=== PATIENT | male | born 1945 | race Caucasian/White ===

== ENCOUNTER 2020-01-10 17:59 | Emergency (ER) | payer OTHER, MEDICARE, SELFPAY ==
[2020-01-10 18:34] VITALS: BP 181/79; PULSE 69; RESP 15; TEMP 36.8; O2SAT 95; BMI 34.0
[2020-01-10] MEDS: lidocaine 1% INJ 20 mL SUBCUT (23:21)
--- NOTE | 2020-01-10 23:55 | XR_ITS ---
WS: [id number] XR hand LT min 3V* [id number] REASON FOR EXAM: injury FINDINGS: Degenerated changes of the distal phalangeal joints. There is degenerate changes of the first metacarpal carpal articulation. There is hypertrophic changes noted along the second phalanx with marked soft tissue swelling of the second phalanx. XR/XR hand LT min 3V* [id number] IMPRESSION: Soft tissue swelling second phalanx. Osteoarthritic changes of the phalanges and the first metacarpal carpal carpal articulation.
--- NOTE | 2020-01-10 23:55 | ED_ITS ---
HPI - Extremity Problem General: Chief complaint: Extremity Injury, Upper Stated complaint: thumb laceration Time Seen by Provider: 01/10/20 23:15 Source: patient Mode of arrival: ambulatory Limitations: no limitations History of Present Illness: HPI Narrative: Patient comes in today with complaints of injury to the left thumb. Patient was using a table saw and caught the left thumb across the table saw. Patient has a gaping laceration. Patient cannot recall his last tetanus shot. Review of Systems General: Reports: 10 or more systems reviewed and unremarkable except in HPI and below Skin/Breast: Reports: other (laceration left thumb) PFS ED PFSH: Social History Smoking and tobacco status: never smoked Physical Exam Const: COMMON NORMALS: no apparent distress and oriented x3 GENERAL APPEARANCE: cooperative HENMT: COMMON NORMALS: normocephalic, external ears normal, EAC's normal, TM's normal bilaterally and external nose normal HEAD & SCALP: normal to inspection and normocephalic FACE & SINUS: normal facial exam NOSE: external nose normal GENERAL EAR: hearing not grossly impaired EXTERNAL EAR: Yes external ears normal EXTERNAL AUDITORY CANAL: EAC's normal TYMPANIC MEMBRANE: TM's normal bilaterally MOUTH: oral and palatal mucosa normal THROAT: posterior oropharynx normal Eye: COMMON NORMALS: PERRL and EOMs intact bilaterally PUPIL: Yes PERRL Neck/C-Spine: COMMON NORMALS: full ROM and no lymphadenopathy Lymph: LYMPHATIC: no lymphedema noted Chest: COMMONS NORMALS: inspection of chest normal and palpation of chest normal Resp: COMMON NORMALS: normal respiratory effort and clear to auscultation bilaterally AUSCULTATION: clear to auscultation bilaterally Cardio: COMMON NORMALS: regular rate and regular rhythm RATE: regular rate RHYTHM: regular rhythm GI: COMMON NORMALS: normal to inspection, nondistended, normoactive bowel sounds and non-tender : COMMON NORMALS: Yes no CVA tenderness BLADDER/KIDNEY EXAM: Yes no CVA tenderness Back/Pelvis: COMMON NORMALS: no CVA tenderness and thoracic and lumbar spine normal to inspection Extremity: NARRATIVE EXTREMITY EXAM: 4 cm laceration to the left thumb. No foreign body is noted. No ligament injury is noted. GENERAL: Yes edema Neuro: COMMON NORMALS: oriented x3, moves all extremities and no focal motor deficits Psych: COMMON NORMALS: mental status grossly normal and cooperative Skin: COMMON NORMALS: no rashes or lesions noted GENERAL SKIN EXAM: no rashes or lesions noted Procedures Laceration Laceration 1: Site: hand (left thumb) Side (If applicable): left Size (cm): 4 Description: flap Depth: involves muscle layer Local Anesthetic: lidocaine 1% Amount of anesthesia used (mL): 8 Pre-repair: wound explored and irrigated extensively Skin layer closed with: nylon Size (cm): 4-0 Number of sutures: 15 Technique: simple, interrupted Course Vital Signs: Vital signs: Vital Signs Temperature 98.3 F 01/10/20 18:34 Pulse Rate 69 01/10/20 18:34 Respiratory Rate 15 01/10/20 18:34 Blood Pressure 181/79 01/10/20 18:34 Pulse Oximetry 95 01/10/20 18:34 MDM - Extremity (Nontraumatic) MDM Narrative: Medical decision making narrative: Patient comes in with injury to the left thumb. On exam we note an extensive laceration to the volar area aspect of the thumb. No obvious damage is noted to the nail. Prompt capillary refill is noted in the distal part of the thumb. Skin is warm and dry. Normal tendon function is noted. Differential diagnosis includes foreign body, fracture, tendon injury, laceration. X-ray noted damage to the tuft of the thumb. Exam noted no foreign body or tendon injury. Wound was repaired with 15 stitches. Patient tolerated well. Reviewed post care exam and need for follow- up. Patient reports understanding agreed to plan. Discharge Plan Discharge Patient Disposition: Home, Self-Care Clinical Impression: Laceration of thumb Qualifiers: Encounter type: initial encounter Damage to nail status: without damage Foreign body presence: without foreign body Laterality: left Qualified Code(s): S61.012A - Laceration without foreign body of left thumb without damage to nail, initial encounter Condition: Stable Prescriptions: New hydrocodone-acetaminophen 5-325 mg tablet 1 tab PO Q6H PRN (Reason: pain (scale score 7-10)) Qty: 7 RF: 0 cephalexin 500 mg tablet 500 mg PO TID 10 Days Qty: 30 RF: 0 Referrals: Jose De Jesus Reilly MD [Family Provider] - Discharge Diet: Usual diet Discharge Activity: Increase activity as tolerated Patient Instructions: Finger Laceration (ED) Activity Restrictions/Additional Instructions: keep wound clean and dry change dressing if soiled or wet wash wound gently with mild soap then redress Follow-up with primary care in one week for recheck Sutures out in 10-14 days Coding Level of Care Code ED Fiberglass Machine Operator for Everg Fwd Exam Comprehensive
[2020-01-11] MEDS: HYDROcodone-acetaminophen 7.5-325 mg Tablet 1 TAB PO (00:01)
[2020-01-11] MEDS: tetanus-dipt-pertussis 0.5 mL SDV IM (00:01)
[2020-01-11] MEDS: cephALEXin 500 mg Capsule PO (00:02)
== END 2020-01-11 00:46 | disposition home or self-care (01) ==
PROVIDERS: Emergency Provider Nurse Practitioner Family; Family Provider Family Medicine
DX: S61.012A Laceration without foreign body of left thumb without damage to nail, initial encounter (principal); W31.2XXA Contact with powered woodworking and forming machines, initial encounter
CPT/HCPCS: 12042; 73130; 90471; 90715; 99281; 99283; J2001

== ENCOUNTER → 2020-03-16 11:19 | Outpatient (BNVA) | payer MEDICARE, OTHER, SELFPAY | PROVIDERS: Family Provider Family Medicine; Visit Provider Urology | DX: C61 Malignant neoplasm of prostate (principal); N52.9 Male erectile dysfunction, unspecified | CPT/HCPCS: 81001; 84153 ==

== ENCOUNTER 2020-10-09 12:51 | Outpatient (CLI) | payer OTHER, SELFPAY ==
--- NOTE | 2020-10-09 13:07 | MR_ITS ---
WS: [id number] MRI HEAD WITH CONTRAST TECHNIQUE: Sagittal T1, T2 axial, T2 axial FLAIR, axial susceptibility weighted imaging, axial diffus ion weighted images, and coronal T2 images were obtained. Pre and post-T1 axial and post T1 coronal i mages. ADC and FSPGR images. CLINICAL INFORMATION: COARSE TREMORS COMPARISON: None. FINDINGS: No evidence of restricted diffusion to suggest acute ischemia. Ventricular system and basal cisterns are patent. Mild small vessel changes. Moderate parenchymal volume loss. Small vessel changes in the casey. 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 Right ICA and basilar arteries are patent. Moderate symmetric atrophy involving the temporal lobes and hippocampal formations. Normal optic marty sm and pituitary infundibulum. No hemosiderin on the susceptibility weighted images. No abnormal gado linium enhancement. Normal optic chiasm and pituitary infundibulum. Normal cavernous sinuses and Meck el's cave. Normal dural venous sinuses. MR/MR head wo/w con [id number] IMPRESSION: 1. No evidence of restricted diffusion to suggest acute ischemia. 2. Mild small vessel changes. Moderate parenchymal volume loss. Small vessel c hanges in the casey. 3. Chronic lacunar infarct right cerebellum. 4. 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 This is unchanged since the ultraso und in 2019. Findings can be further evaluated with CTA head and neck. 5. Moderate symmetric atrophy involving the temporal lobes and hippocampal for mations. 6. No abnormal gadolinium enhancement.
== END 2020-10-09 12:52 | disposition home or self-care (01) ==
LOC: RADSHAW 12:53
PROVIDERS: PCP Emergency Medicine Emergency Medical Services; Visit Provider Emergency Medicine Emergency Medical Services
DX: G25.2 Other specified forms of tremor (principal); G31.9 Degenerative disease of nervous system, unspecified; I63.81 Other cerebral infarction due to occlusion or stenosis of small artery; I65.22 Occlusion and stenosis of left carotid artery
CPT/HCPCS: 70553

== ENCOUNTER 2020-11-16 10:41 | Outpatient (CLI) | payer MEDICARE, OTHER, SELFPAY ==
[2020-11-16 11:23] LABS: Basophils # 0.1 10^3/uL (0.0-0.1); Basophils % 0.8 %; Eosinophils # 0.5 10^3/uL (0.0-0.8); Eosinophils % 6.7 %; Hematocrit 47.5 % (42.0-52.0); Hemoglobin 15.2 g/dL (11.7-16.6); Lymphocytes # 1.2 10^3/uL (0.8-4.8); Lymphocytes % 16.6 %; Mean Corpuscular Hemoglobin 31.5 pg (28.0-34.0); Mean Corpuscular Volume 98.5 fL (80-94); Mean Platelet Volume 9.7 fL (7.4-10.4); Monocytes # 0.7 10^3/uL (0.2-0.9); Monocytes % 9.8 %; Neutrophils # 4.62 10^3/uL (1.8-7.7); Neutrophils % 64.7 %; Nucleated Red Blood Cells % 0 %; Platelet Count 221 10^3/cmm (130-400); Red Blood Count 4.82 10^6/uL (4.1-5.3); Red Cell Distribution Width 14.4 % (12.1-15.1); White Blood Count 7.2 10^3/uL (4.0-10.0)
[2020-11-16 11:52] LABS: Alanine Aminotransferase 16 U/L (0-41); Albumin Level 4.5 g/dL (3.5-5.2); Alkaline Phosphatase 77 IU/L (40-130); Anion Gap 12.7 (5-19); Aspartate Amino Transferase 21 U/L (0-40); Blood Urea Nitrogen 21 mg/dL (8-23); Calcium 8.9 mg/dL (8.5-10.5); Carbon Dioxide 29 mmol/L (22-29); Chloride 101 mmol/L (98-107); Globulin 2.3 g/dL (1.3-4.6); Glucose 86 mg/dL (65-115); Osmolality Calculated 288 mOsm/kg (285-295); Potassium 4.7 mmol/L (3.5-5.1); Sodium 138 mmol/L (136-145); Total Bilirubin 0.6 mg/dL (0.15-1.2); Total Protein 6.8 g/dL (6.6-8.7)
[2020-11-16 12:19] LABS: Erythrocyte Sedimentation Rate 3 mm/hr (0-10)
[2020-11-16 12:50] LABS: HIV 1 & 2 Antibody Non-Reactive (Non-Reactiv); HIV 1 & 2 Antigen Non-Reactive (Non-Reactiv)
[2020-11-16 13:27] LABS: Hepatitis A Antibody IgM Non-Reactive (Nonreactive); Hepatitis B Core AB, Total Non-Reactive (Nonreactive); Hepatitis B Surface AB 5.6 (0-8.5); Hepatitis B Surface Antigen Non-Reactive (Nonreactive); Hepatitis C Virus Antibody Non-Reactive (Nonreactive)
[2020-11-18 14:53] LABS: Quantiferon Mitogen >10.00 IU/mL; Quantiferon Nil 0.02 IU/mL; Quantiferon TB Gold NEGATIVE (NEGATIVE)
== END 2020-11-16 10:42 | disposition home or self-care (01) ==
PROVIDERS: PCP Emergency Medicine Emergency Medical Services; Visit Provider Student in an Organized Health Care Education/Training Program
DX: R50.9 Fever, unspecified (principal)
CPT/HCPCS: 36415; 80053; 85025; 85651; 86480; 86705; 86706; 86709; 86803; 87340; 87806

== ENCOUNTER → 2021-03-15 11:10 | Outpatient (BNVA) | payer OTHER, SELFPAY | PROVIDERS: PCP Emergency Medicine Emergency Medical Services; Visit Provider Urology | DX: N39.9 Disorder of urinary system, unspecified (principal); C61 Malignant neoplasm of prostate; R39.9 Unspecified symptoms and signs involving the genitourinary system; N52.35 Erectile dysfunction following radiation therapy | CPT/HCPCS: 81003; G0103 ==

== ENCOUNTER 2021-11-07 12:33 | Outpatient (CLI) | payer OTHER, SELFPAY ==
--- NOTE | 2021-11-07 13:00 | MR_ITS ---
WS: [id number] MRI RIGHT SHOULDER NONCONTRAST TECHNIQUE: Sagittal T2, coronal T1, T2 and proton density imaging. Axial gradient PDE imaging. CLINICAL INFORMATION: M67.911 - Unspecified disorder of synovium and tendon, ri... COMPARISON: None. FINDINGS: Moderate degenerative arthritis at the AC joint. Moderate narrowing of the subacromial space. Slight subacromial spurring. Minimal downsloping acromion. Glenohumeral joint effusion. Small amount of suba cromial/subdeltoid fluid. Edema at the AC joint. High-grade full-thickness tear of the supraspinatus with tendon retraction to the level of the glenoh umeral joint. Additional high-grade complete tear of the infraspinatus with tendon retraction to the glenohumeral joint. Normal teres minor. Chronic thinning with intrasubstance tear of the subscapularis tendon. Biceps ten don is atrophic and dislocated anteriorly and medially from the bicipital groove. Tiny intra-articula r biceps tendon. Paralabral cyst along the posterior inferior labrum measuring 9 mm. Chronic appearing tear along the posterior glenoid labrum. Degenerative fraying of the glenoid labrum. Intra-articular biceps tendon i s not well visualized likely chronically torn. Degenerative cystic change at the greater tuberosity. . MR/MR shoulder RT wo con* [id number] IMPRESSION: 1. Moderate degenerative arthritis AC joint with edema and fluid. Subacromial spurring 2. High-grade full-thickness tears involving supraspinatus and infraspinatus w ith tendon retraction to the level of glenohumeral joint. 3. Intrasubstance tear with chronic thinning of the subscapularis tendon. Peg s minor appears intact. 4. Biceps tendon is atrophic and dislocated from the bicipital groove. Tiny in tra-articular biceps tendon. 5. Chronic appearing tear of the posterior glenoid labrum with a perilabral cy st measuring 9 mm. 6. Moderate joint effusion
== END 2021-11-07 12:34 | disposition home or self-care (01) ==
LOC: RADSHAW 12:36
PROVIDERS: PCP Emergency Medicine Emergency Medical Services; Visit Provider Orthopaedic Surgery
DX: M67.911 Unspecified disorder of synovium and tendon, right shoulder (principal); M19.011 Primary osteoarthritis, right shoulder; M75.101 Unspecified rotator cuff tear or rupture of right shoulder, not specified as traumatic; M25.411 Effusion, right shoulder; S43.431A Superior glenoid labrum lesion of right shoulder, initial encounter; X58.XXXA Exposure to other specified factors, initial encounter
CPT/HCPCS: 73221

== ENCOUNTER 2022-01-29 20:00 | Outpatient (CLI) | payer OTHER, SELFPAY | END 2022-01-29 20:01 | disposition home or self-care (01) | LOC: SLEEP 01-30 06:33 | PROVIDERS: PCP Emergency Medicine Emergency Medical Services; Visit Provider Emergency Medicine Emergency Medical Services | DX: G47.33 Obstructive sleep apnea (adult) (pediatric) (principal) | CPT/HCPCS: 95811 ==

== ENCOUNTER 2022-03-14 10:14 | Outpatient (CLI) | payer MEDICARE, SELFPAY | END 2022-03-14 10:15 | disposition home or self-care (01) | PROVIDERS: PCP Emergency Medicine Emergency Medical Services; Visit Provider Urology | DX: C61 Malignant neoplasm of prostate (principal) | CPT/HCPCS: 36415; 81003; 84153 ==

== ENCOUNTER → 2022-05-22 14:39 | Outpatient (BNVA) | payer OTHER, SELFPAY | PROVIDERS: PCP Emergency Medicine Emergency Medical Services; Referring Provider Emergency Medicine Emergency Medical Services; Visit Provider Surgery | DX: Z86.010 Personal history of colon polyps (principal) | CPT/HCPCS: 99203 ==

== ENCOUNTER 2022-07-01 14:06 | Emergency (ER) | payer OTHER, MEDICARE, SELFPAY ==
[2022-07-01 14:14] VITALS: PULSE 79; RESP 20; TEMP 37.3; O2SAT 97; BMI 36.8
--- NOTE | 2022-07-01 14:44 | XRR_ITS ---
PROCEDURE INFORMATION: Exam: XR Chest Exam date and time: 07/01/2022 3:10 PM Age: 77 years old Clinical indication: Other: Covid symptoms; Patient HX: HX of prostate cancer TECHNIQUE: Imaging protocol: Radiologic exam of the chest. Views: 1 view. COMPARISON: CR Chest 2 views* [id number] 01/04/2019 10:24 AM FINDINGS: Lungs: Unremarkable. No consolidation. Pleural spaces: Unremarkable. No pleural effusion. No pneumothorax. Heart/Mediastinum: Unremarkable. No cardiomegaly. Bones/joints: Unremarkable. XR/XR chest 1V portable [id number] IMPRESSION: No acute findings.
--- NOTE | 2022-07-01 15:31 | W.ED.COVID ---
HPI - COVID General: Chief Complaint: COVID symptoms Stated Complaint: cold chills Time Seen by Provider: 07/01/22 14:43 Source: patient Mode of arrival: ambulatory Triage information: No fever, cough or shortness of breath. No known COVID + exposure last 14 days History of Present Illness: 77-year-old male presents emergency room with complaints of fever cough chills generally not feeling well headache myalgia denies any nausea vomiting or diarrhea began earlier today he has no known COVID exposure otherwise he generally feels well. He has a history of hypertension. Symptoms began earlier today has not noticed anything that exacerbates or relieves his symptoms. MD complaint: has COVID symptoms Prior covid testing: no COVID 19 common symptoms: positive fever(s), chills, cough, non-productive cough, dyspnea, fatigue, body aches, headache(s), throat pain, nasal congestion and nausea; negative productive cough or diarrhea COVID 19 other sytmptoms: negative chest pain or requiring oxygen Onset (ago): hour(s) Severity: moderate Pertinent comorbid conditions: hypertension Treatment prior to arrival: none COVID Results: No Data to Display Review of Systems Const: Reports: fever(s), chills, body aches and fatigue; Denies: malaise ENMT: Reports: throat pain and nasal congestion Card: Denies: chest pain, edema, dyspnea on exertion or orthopnea Resp: Reports: dyspnea and non-productive cough; Denies: productive cough GI: Reports: nausea; Denies: abdominal pain or diarrhea : Denies: flank pain, dysuria, urinary frequency or urinary urgency Skin/Breast: Denies: rash or pruritus Neuro: Reports: headache(s) PFSH ED PFSH: Medical History Carotid artery stenosis History of radiation therapy Hyperlipidemia Hypertension Hypogonadism Osteoarthritis Prostate cancer Surgical History H/O angioplasty H/O prostate biopsy S/P tonsillectomy Family History Family/Other CAD (coronary artery disease) Hypertension Hyperlipidemia Social History Smoking and tobacco status: never smoked Alcohol intake: current Alcohol intake frequency: holidays/special occasions only Marital status: History of recent travel: No Physical Exam Const: GENERAL APPEARANCE: cooperative and comfortable ORIENTATION/CONSCIOUSNESS: Yes awake, Yes oriented to person, Yes oriented to place and Yes oriented to time HENMT: COMMON NORMALS: normocephalic and atraumatic HEAD & SCALP: normocephalic and atraumatic Resp: COMMON NORMALS: normal respiratory effort, No retractions, No use of accessory muscles and clear to auscultation bilaterally AUSCULTATION: clear to auscultation bilaterally Cardio: COMMON NORMALS: regular rate, regular rhythm and No murmurs present (Cardio) RATE: regular rate RHYTHM: regular rhythm GI: COMMON NORMALS: Soft to palpation and No hepatosplenomegaly present AUSCULTATION: Yes normoactive bowel sounds PALPATION: Yes Soft to palpation, No Tenderness to palpation present (GI), No Guarding due to palpation present (GI) and Yes No hepatosplenomegaly present Extremity: COMMON NORMALS: normal to inspection, capillary refill normal, no clubbing, cyanosis or edema, no calf tenderness and no pedal edema Neuro: SENSORIUM/ORIENTATION: Yes oriented to person, Yes oriented to place and Yes oriented to time Skin: COMMON NORMALS: no rashes or lesions noted GENERAL SKIN EXAM: no rashes or lesions noted Course Vital Signs: Vital signs: Vital Signs Temperature 99.1 F 07/01/22 14:14 Pulse Rate 79 07/01/22 14:14 Respiratory Rate 20 H 07/01/22 14:14 Pulse Oximetry 97 07/01/22 14:14 Oxygen Delivery Ok thod 07/01/22 14:14 MDM - COVID Medical Decision Making Exam vital signs normal discharge home COVID swab pending maintain self quarantine until results are available. Would be a candidate for Paxlovid if positive Medical Records I reviewed the patient's medical records. Lab Data I reviewed the patient's lab results. No Data to Display Discharge Plan Discharge Patient Disposition: Home Clinical Impression: Suspected COVID-19 virus infection Condition: Stable Prescriptions: No Action atorvastatin 10 mg tablet 10 mg PO DAILY metoprolol tartrate 50 mg tablet 50 mg PO DAILY magnesium oxide 420 mg tablet 420 mg PO DAILY allopurinol 300 mg tablet 300 mg PO DAILY citalopram 20 mg tablet 20 mg PO DAILY celecoxib [Celebrex] 200 mg capsule 200 mg PO DAILY amlodipine 10 mg tablet 10 mg PO DAILY aspirin 325 mg tablet 325 mg PO DAILY vitamin B complex [B Complex-Vitamin B12] Tablet 1 tab PO DAILY cholecalciferol (vitamin D3) 1,250 mcg (50,000 unit) capsule PO glucosamine sulfate [Glucosamine] 500 mg tablet 500 mg PO BID methotrexate 2.5 mg/mL solution PO DAILY Discharge Orders: Discharge ED (Routine); Ordered 07/01/22 Ordered By: Josias Terrazas Referrals: Amador Valladares DO [Primary Care Provider] - Discharge Diet: Usual diet Discharge Activity: Resume usual activity Patient Instructions: Opioid Safety Activity Restrictions/Additional Instructions: You were swabbed for COVID in the emergency room based on your presenting symptoms we do suspect you may have COVID. Recommend that you maintain self quarantine till results are available we will contact you as soon as they have returned from the lab. Coding Level of Care Code ED Tap Out Operator for Wilda Starr
[2022-07-01 17:50] LABS: Adenovirus Not Detected (NOT DETECT); Chlamydia Pneumoniae Not Detected (NOT DETECT); Coronavirus 229E,HKU1,NL63,OC4 Not Detected (NOT DETECT); Human Metapneumovirus Not Detected (NOT DETECT); Human Rhinovirus/Enterovirus Not Detected (NOT DETECT); Influenza A Not Detected (NOT DETECT); Influenza A H1 Not Detected (NOT DETECT); Influenza A H1-2009 Not Detected (NOT DETECT); Influenza A H3 Not Detected (NOT DETECT); Influenza B Not Detected (NOT DETECT); Mycoplasma Pneumoniae Not Detected (NOT DETECT); Parainfluenza Virus Type 1 Not Detected (NOT DETECT); Parainfluenza Virus Type 2 Not Detected (NOT DETECT); Parainfluenza Virus Type 3 Not Detected (NOT DETECT); Parainfluenza Virus Type 4 Not Detected (NOT DETECT); Respiratory Syncytial Virus A Not Detected (NOT DETECT); Respiratory Syncytial Virus B Not Detected (NOT DETECT); SARS-COV-2 Not Detected (NOT DETECT)
== END 2022-07-01 16:05 | disposition home or self-care (01) ==
PROVIDERS: Emergency Provider Family Medicine; PCP Emergency Medicine Emergency Medical Services
DX: Z20.822 Contact with and (suspected) exposure to COVID-19 (principal); Z79.82 Long term (current) use of aspirin; E78.5 Hyperlipidemia, unspecified; I10 Essential (primary) hypertension; Z85.46 Personal history of malignant neoplasm of prostate
CPT/HCPCS: 71045; 87635; 99283

== ENCOUNTER 2022-08-08 05:56 | Day surgery (SDC) | payer OTHER, SELFPAY ==
[2022-08-06 12:50] VITALS: BMI 35.2
[2022-08-08 06:23] VITALS: BP 160/74; PULSE 46; RESP 18; TEMP 36.4; O2SAT 98
[2022-08-08] MEDS: sodium chloride 0.9% 1,000 ML 30 ML IV (06:33)
--- NOTE | 2022-08-08 06:37 | W.PM.OPSFHP ---
Same Day Surgery H&P Indication for Procedure/HPI DATE OF PROCEDURE: August 08, 2022 CHIEF COMPLAINT/INDICATIONFOR SURGICAL PROCEDURE: History of colon polyps PREOP DIAGNOSIS: History of colon polyps PLANNED PROCEDURE: Operation Date: 08/08/22 07:00 Proposed Procedures p Colonoscopy 30073,Z86.010(Not Applicable) - Carlos Wahl MD This is a pleasant 77 years old gentleman comes today for surveillance colonoscopy with history of colon polyps. ROS All systems have been reviewed negative except as for the above or per problem list. Medications/Allergies* Home Medications Medication Instructions Recorded Confirmed Type allopurinol 300 mg tablet 300 mg PO DAILY 03/16/20 08/06/22 History amlodipine 10 mg tablet 10 mg PO DAILY 03/16/20 08/06/22 History atorvastatin 10 mg tablet 10 mg PO DAILY 03/16/20 08/06/22 History celecoxib 200 mg capsule (Celebrex) 200 mg PO DAILY 03/16/20 08/06/22 History cholecalciferol (vitamin D3) 1,250 1,250 mcg PO BID 03/16/20 08/06/22 History mcg (50,000 unit) capsule citalopram 20 mg tablet 20 mg PO DAILY 03/16/20 08/06/22 History glucosamine sulfate 500 mg tablet 500 mg PO BID 03/16/20 08/06/22 History (Glucosamine) magnesium oxide 420 mg tablet 420 mg PO DAILY 03/16/20 08/06/22 History metoprolol tartrate 50 mg tablet 50 mg PO DAILY 03/16/20 08/06/22 History vitamin B complex (B 1 tab PO DAILY 03/16/20 08/06/22 History Complex-Vitamin B12 tablet) methotrexate 2.5 mg/mL oral 2.5 mg PO DAILY 03/15/21 08/06/22 History solution Allergies/Adverse Reactions Allergy/AdvReac Type Severity Reaction Status Date / Time No Known Allergies Allergy Verified 08/08/22 06:38 Current Medications: Generic Name Dose Route Start Last Admin Trade Name Freq PRN Reason Stop Dose Admin Sodium Chloride 1,000 mls @ 30 mls/hr 08/08/22 06:00 08/08/22 06:33 Sodium Chloride 0.9% IV 08/09/22 05:59 30 mls/hr .Q24H NEYDA Administration Pertinent History/Comorbid Conditions* Medical History (Updated 07/01/22 @ 15:30 by Josias Terrazas DO) Carotid artery stenosis History of radiation therapy Hyperlipidemia Hypertension Hypogonadism Osteoarthritis Prostate cancer Surgical History (Updated 03/15/21 @ 11:39 by Avery Cortez MD) H/O angioplasty H/O prostate biopsy S/P tonsillectomy Family History (Updated 03/16/20 @ 11:17 by Rama Bernard RN) CAD (coronary artery disease) Family/Other Hyperlipidemia Family/Other Hypertension Family/Other Social History Smoking and tobacco status: never smoked Alcohol intake: current Alcohol intake frequency: holidays/special occasions only Marital status: History of recent travel: No Pertinent Exam Findings alert, oriented x 3, regular rate & rhythm and procedure specific exam findings (Abdominal exam nontender nondistended soft) Recommendations Surgery/Procedure today (Colonoscopy with possible biopsy) Coding Level of Care Code Acute Ore Bridge Operator for Wilda Starr
--- NOTE | 2022-08-08 06:50 | ANES.PREANE2 ---
Pre-Anesthetic Assessment Height/Weight: Height 1.7 m Weight 102.058 kg Temp Pulse Resp BP Pulse Ox O2 Del Method 97.5 F L 46 L 18 160/74 98 08/08/22 06:23 08/08/22 06:23 08/08/22 06:23 08/08/22 06:23 08/08/22 06:23 08/08/22 06:23 Preop Diagnosis: History of colon polyps Operation Date: 08/08/22 07:00 Proposed Procedures p Colonoscopy 61394,Z86.010(Not Applicable) - Carlos Wahl MD Familial anesthetic complications: none Was Beta Delilah taken within 24 hours: N/A Was Clonidine taken within 24 hours: N/A Last intake: Intake Last Liquid Date 08/07/22 Last Liquid Time 22:00 Last Solid Date 08/06/22 Last Solid Time 23:59 Social Alcohol and No tobacco Exam alert and oriented x 3 Airway Submandibular: within normal limits Cervical ROM: within normal limits Mallampati: Class II Dentition: full History/ROS No significant history except as noted Pulmonary None reported CV/HEM Hypertension None reported Hepatic None reported GI None reported Metabolic Hyperlipidemia [facility] [place] None reported Neuropsych None reported Anesthetic Plan ASA status: 3 Anesthesia: Anesthesia Evaluation and MAC Risk of > 500 ml blood loss (7ml/kg in children): No Medications/Allergies Home Medications Medication Instructions Recorded Confirmed Last Taken Type allopurinol 300 mg tablet 300 mg PO DAILY 03/16/20 08/06/22 08/07/22 History amlodipine 10 mg tablet 10 mg PO DAILY 03/16/20 08/06/22 08/08/22 05:00 History atorvastatin 10 mg tablet 10 mg PO DAILY 03/16/20 08/06/22 08/07/22 History celecoxib 200 mg capsule (Celebrex) 200 mg PO DAILY 03/16/20 08/06/22 08/07/22 History cholecalciferol (vitamin D3) 1,250 1,250 mcg PO BID 03/16/20 08/06/22 08/07/22 History mcg (50,000 unit) capsule citalopram 20 mg tablet 20 mg PO DAILY 03/16/20 08/06/22 08/07/22 History glucosamine sulfate 500 mg tablet 500 mg PO BID 03/16/20 08/06/22 08/07/22 History (Glucosamine) magnesium oxide 420 mg tablet 420 mg PO DAILY 03/16/20 08/06/22 08/07/22 History metoprolol tartrate 50 mg tablet 50 mg PO DAILY 03/16/20 08/06/22 08/08/22 05:00 History vitamin B complex (B 1 tab PO DAILY 03/16/20 08/06/22 08/07/22 History Complex-Vitamin B12 tablet) methotrexate 2.5 mg/mL oral 2.5 mg PO DAILY 03/15/21 08/06/22 08/07/22 History solution Allergies Allergy/AdvReac Type Severity Reaction Status Date / Time No Known Allergies Allergy Verified 08/08/22 06:38 Current Medications Generic Name Dose Route Start Last Admin Trade Name Freq PRN Reason Stop Dose Admin Sodium Chloride 1,000 mls @ 30 mls/hr 08/08/22 06:00 08/08/22 06:33 Sodium Chloride 0.9% IV 08/09/22 05:59 30 mls/hr .Q24H NEYDA Administration PFSH Anesthesia Medical History Carotid artery stenosis History of radiation therapy Hyperlipidemia Hypertension Hypogonadism Osteoarthritis Prostate cancer Surgical History H/O angioplasty H/O prostate biopsy S/P tonsillectomy Family History Family/Other CAD (coronary artery disease) Hypertension Hyperlipidemia Social History Smoking and tobacco status: never smoked Alcohol intake: current Alcohol intake frequency: holidays/special occasions only Marital status: History of recent travel: No Data Anesthesia Cardiac Studies: No Data to Display
[2022-08-08 07:19] VITALS: BP 111/59; PULSE 42; RESP 18; TEMP 36.1; O2SAT 95
--- NOTE | 2022-08-08 07:22 | ANE.PACU2 ---
Inpatient post-anesthesia follow up: Airway intact: Yes Vital signs: Temperature 97.0 F Pulse Rate 42 Respiratory Rate 18 Blood Pressure 111/59 Pulse Oximetry 95 Oxygen Delivery Me thod Room Air Oxygen Flow Rate Fraction of Inspir ed Oxygen Hydration adequate: Yes Nausea and vomiting: No Pain level: 1 Mental status: Baseline
[2022-08-08 07:42] VITALS: BP 134/62; PULSE 47; RESP 18; O2SAT 100
== END 2022-08-08 07:46 | disposition home or self-care (01) ==
PROVIDERS: PCP Emergency Medicine Emergency Medical Services; Visit Provider Surgery
PROC: 0DJD8ZZ Inspection of Lower Intestinal Tract, Via Natural or Artificial Opening Endoscopic (ICD-10-PCS; CPT 45378; principal; 2022-08-08 07:00)
DX: Z12.11 Encounter for screening for malignant neoplasm of colon (principal); Z86.010 Personal history of colon polyps; E78.5 Hyperlipidemia, unspecified; M19.90 Unspecified osteoarthritis, unspecified site; Z85.46 Personal history of malignant neoplasm of prostate; Z92.3 Personal history of irradiation; K57.30 Diverticulosis of large intestine without perforation or abscess without bleeding
CPT/HCPCS: 45378; J2704; J7030

== ENCOUNTER → 2022-08-22 16:06 | Outpatient (BNVA) | payer OTHER, MEDICARE, SELFPAY | PROVIDERS: PCP Emergency Medicine Emergency Medical Services; Visit Provider Surgery | DX: Z09 Encounter for follow-up examination after completed treatment for conditions other than malignant neoplasm (principal); K57.31 Diverticulosis of large intestine without perforation or abscess with bleeding | CPT/HCPCS: 99212 ==

== ENCOUNTER 2023-03-13 09:12 | Outpatient (CLI) | payer MEDICARE, SELFPAY ==
[2023-03-13 10:07] LABS: Prostate Specific AG Urology 0.82 ng/mL (0-4)
== END 2023-03-13 09:13 | disposition home or self-care (01) ==
LOC: LAB 09:17
PROVIDERS: PCP Emergency Medicine Emergency Medical Services; Visit Provider Urology
DX: C61 Malignant neoplasm of prostate (principal); R39.9 Unspecified symptoms and signs involving the genitourinary system; N52.35 Erectile dysfunction following radiation therapy
CPT/HCPCS: 36415; 81003; 84153; 99213

== ENCOUNTER 2023-07-23 10:10 | Emergency (ER) | payer OTHER, SELFPAY ==
[2023-07-23 10:38] VITALS: BP 178/82; PULSE 68; RESP 16; TEMP 36.6; O2SAT 97; BMI 33.8
--- NOTE | 2023-07-23 10:56 | CT_ITS ---
WS: [id number] CT ABDOMEN AND PELVIS NONCONTRAST HISTORY: left flank pain with urinary frequency TECHNIQUE: Imaging performed through the abdomen and pelvis. Coronal and sagittal reformats are submi tted. All CT scans at [facility] use at least one of these dose optimization techniques: auto mated exposure control; mA and/or kV adjustment per patient size (includes targeted exams where dose is matched to clinical indication); or iterative reconstruction. DLP: 892.08 mGy.cm COMPARISON: None available. Lower thorax: Lung bases are clear. Visualized heart is normal. No hiatal hernia. Liver: Normal size liver. No mass or bile duct dilatation. Gallbladder: Cholelithiasis without acute cholecystitis. Pancreas: Normal size and attenuation. Normal pancreatic duct. No pancreatitis or mass. Spleen: Normal. Adrenal glands: Normal. No mass. Right kidney: Normal size kidney with no mass or hydronephrosis. Left kidney: Mildly enlarged edematous LEFT kidney with perinephric stranding. Mild dilatation of the renal pelvis and calyces. LEFT ureter is dilated with periureteral stranding. 6 mm calcification at the UV junction. Aorta: Moderate atherosclerosis abdominal aorta. No aneurysm. Atherosclerosis continues into the comm on iliac arteries. No free fluid, intraperitoneal air or significant lymphadenopathy. GI tract: No obstruction. Moderate diffuse constipation and tortuosity of the colon. Moderate diverti cular burden in the distal colon without acute diverticulitis. Normal appendix. Abdominal wall: Small umbilical hernia contains fat only. Pelvis: Prior prostatectomy. No free fluid or adenopathy. Osseous structures: LEFT hip arthroplasty. Advanced degenerative changes throughout the lumbar spine. IMPRESSION: 1. Mild LEFT hydroureteronephrosis secondary to a 6 mm UP junction calcification. 2. No RIGHT renal obstruction. 3. Cholelithiasis. 4. Moderate atherosclerosis aorta. 5. Extensive chronic constipation with moderate distal colonic diverticular burden.
--- NOTE | 2023-07-23 11:15 | ED_ITS ---
HPI - Abdominal Pain General: Chief Complaint: Abdominal Pain Stated Complaint: [facility] Time Seen by Provider: 07/23/23 10:45 History of Present Illness: 78-year-old male presents to the emergency department with a chief complaint of having ongoing left-sided flank pain rating to the left groin has been progressively getting worse over the last couple of days. Patient also endorses urinary frequency with this does not report any recent fevers or chills reports a prior history of kidney infections but no kidney stones patient did not endorse any prior history of back issues patient does report moderate nausea with this pain that comes and goes in waves. Associated Symptoms: Reports nausea; Denies chills and fever(s) Review of Systems General: Reports: 10 or more systems reviewed and unremarkable except in HPI and below Const: Denies: fever(s), chills, fatigue or malaise Eyes: Denies: change in vision or blurry vision Card: Denies: chest pain or palpitations Resp: Denies: dyspnea or productive cough GI: Reports: abdominal pain and nausea : Reports: flank pain and urinary frequency Musc: Denies: extremity pain or extremity swelling Skin/Breast: Denies: rash or pruritus Neuro: Denies: headache(s) Psych: Denies: anxiety or depression Henrry/Lymph: Denies: easy bleeding All/Imm: Denies: urticaria, throat swelling or facial swelling PFSH ED 2 PFSH: Medical History Carotid artery stenosis History of radiation therapy Hyperlipidemia Hypertension Hypogonadism Osteoarthritis Prostate cancer Surgical History H/O angioplasty H/O prostate biopsy S/P tonsillectomy Family History Family/Other CAD (coronary artery disease) Hypertension Hyperlipidemia Social History Smoking and tobacco status: never smoked Alcohol intake: current Alcohol intake frequency: holidays/special occasions only Substance/Drug Use: never Marital status: Current occupational status: retired Physical Exam Const: COMMON NORMALS: patient oriented x3 and healthy appearing; apparent distress HENMT: COMMON NORMALS: normocephalic and atraumatic HEAD & SCALP: normocephalic and atraumatic Eye: COMMON NORMALS: Equal, round and reactive pupils present and EOMs intact bilaterally PUPIL: Yes Equal, round and reactive pupils present Neck/C-Spine: COMMON NORMALS: full ROM, supple and no JVD Lymph: LYMPHATIC: no lymphadenopathy noted Chest: COMMONS NORMALS: normal inspection of the chest and normal palpation of entire chest wall Resp: COMMON NORMALS: normal respiratory effort, No retractions and clear to auscultation bilaterally EFFORT & INSPECTION: Yes able to speak in complete s entences and Yes symmetric chest movement AUSCULTATION: clear to auscultation bilaterally Cardio: COMMON NORMALS: no JVD, regular rate and regular rhythm RATE: regular rate RHYTHM: regular rhythm GI: COMMON NORMALS: Normal to inspection, nondistended, normoactive bowel sounds present, Soft to palpation and non-tender INSPECTION: Yes normal to inspection PALPATION: Yes Soft to palpation : OTHER: Moderate left-sided CVA tenderness to management rating to left lower abdomen otherwise soft nontender Extremity: COMMON NORMALS: normal to inspection and full ROM Neuro: COMMON NORMALS: patient oriented x3, CN's II-XII intact bilaterally, moves all extremities and no focal motor deficits Psych: COMMON NORMALS: mental status grossly normal, Normal thought process present, cooperative and normal affect THOUGHT PROCESS: Normal thought process present Skin: COMMON NORMALS: no rashes or lesions noted GENERAL SKIN EXAM: no rashes or lesions noted Course Vital Signs: Vital signs: Vital Signs Temperature 97.9 F 07/23/23 10:38 Pulse Rate 64 07/23/23 12:02 Respiratory Rate 16 07/23/23 10:38 Blood Pressure 153/80 07/23/23 13:57 Pulse Oximetry 96 07/23/23 13:57 Oxygen Delivery Me thod Room Air 07/23/23 12:02 MDM - Abdominal Pain Medical Decision Making Due to patient's symptoms condition IV was established IV fluids provided for hydration lab work and imaging obtained with underlying concerns of acute stone disease versus infection is prominent, will continue to follow. Lab Data 07/23/23 11:22 07/23/23 11:22 Labs/Radiology: Laboratory Results WBC 8.82 10^3/uL (3.29-11.43) 07/23/23 11:22 RBC 5.11 10^6/uL (3.85-5.65) 07/23/23 11:22 Hgb 15.60 g/dL (11.27-16.99) 07/23/23 11:22 Hct 46.6 % (37-53) 07/23/23 11:22 MCV 91.2 fl (82-101) 07/23/23 11:22 MCH 30.5 pg (27-33) 07/23/23 11:22 MCHC 33.5 g/dL (30-55) 07/23/23 11:22 RDW 12.9 % (12.1-15.1) 07/23/23 11:22 Plt Count 220 10^3/cmm (157-399) 07/23/23 11:22 MPV 9.9 fL (7.4-10.4) 07/23/23 11:22 Neut % (Auto) 69.6 % 07/23/23 11:22 Lymph % (Auto) 15.5 % 07/23/23 11:22 [place] % (Auto) 8.2 % 07/23/23 11:22 Eos % (Auto) 5.4 % 07/23/23 11:22 Baso % (Auto) 0.7 % 07/23/23 11:22 Neut # (Auto) 6.14 10^3/uL (1.8-7.7) 07/23/23 11:22 Lymph # (Auto) 1.4 10^3/uL (0.8-4.8) 07/23/23 11:22 [place] # (Auto) 0.7 10^3/uL (0.2-0.9) 07/23/23 11:22 Eos # (Auto) 0.5 10^3/uL (0.0-0.8) 07/23/23 11:22 Baso # (Auto) 0.1 10^3/uL (0.0-0.1) 07/23/23 11:22 Nucleated RBC % (auto) 0 % 07/23/23 11:22 Nucleated RBCs # 0.0 /100WBC 07/23/23 11:22 Sodium 139 mmol/L (136-145) 07/23/23 11:22 Potassium 3.6 mmol/L (3.5-5.1) 07/23/23 11:22 Chloride 103 mmol/L (98-107) 07/23/23 11:22 Carbon Dioxide 26 mmol/L (22-29) 07/23/23 11:22 Anion Gap 13.6 (5-19) 07/23/23 11:22 BUN 22 mg/dL (8-23) 07/23/23 11:22 Creatinine 1.4 mg/dL (0.7-1.2) H 07/23/23 11:22 GFR Calculation Not Reportable 07/23/23 11:22 Glucose 122 mg/dL (65-115) H 07/23/23 11:22 Calculated Osmolality 293 mOsm/kg (285-295) 07/23/23 11:22 Calcium 9.1 mg/dL (8.5-10.5) 07/23/23 11:22 Total Bilirubin 0.5 mg/dL (0.15-1.2) 07/23/23 11:22 AST 11 U/L (0-40) 07/23/23 11:22 ALT 14 U/L (0-41) 07/23/23 11:22 Alkaline Phosphatase 80 U/L (40-130) 07/23/23 11:22 Total Protein 6.9 g/dL (6.6-8.7) 07/23/23 11:22 Albumin 4.2 g/dL (3.5-5.2) 07/23/23 11:22 Globulin 2.7 g/dL (1.3-4.6) 07/23/23 11:22 Urine Color Dark yellow (Yellow) 07/23/23 13:17 Urine Appearance Sl hazy (CLEAR) A 07/23/23 13:17 Urine pH 5 (5-7) 07/23/23 13:17 Ur Specific [place] 1.020 (1.005-1.030) 07/23/23 13:17 Urine Protein 1+ (Negative) H 07/23/23 13:17 Urine Glucose (UA) Norm (Normal) 07/23/23 13:17 Urine Ketones 1+ (Negative) H 07/23/23 13:17 Urine Blood 2+ (Negative) H 07/23/23 13:17 Urine Nitrate Negative (Negative) 07/23/23 13:17 Urine Bilirubin 1+ (Negative) H 07/23/23 13:17 Urine Urobilinogen 4 mg/dL (Negative) H 07/23/23 13:17 Ur Leukocyte Esterase Trace (Negative) H 07/23/23 13:17 Urine RBC 0-4 /hpf (0-2) H 07/23/23 13:17 Urine WBC 0-4 /hpf (0-5) H 07/23/23 13:17 Ur Squamous Epith Cells 0-4 /hpf (0-5) H 07/23/23 13:17 Calcium Oxalate Crystal 0-4 /hpf H 07/23/23 13:17 Amorphous Sediment 3+ /hpf 07/23/23 13:17 Urine Bacteria None /hpf (NONE) 07/23/23 13:17 Urine Mucus 4+ /hpf 07/23/23 13:17 Discharge Plan Discharge Patient Disposition: Home Clinical Impression: Kidney stone on left side Condition: Stable Prescriptions: New hydrocodone-acetaminophen 5-325 mg tablet 1 tab PO Q8H PRN (Reason: pain) Qty: 20 0RF ondansetron 4 mg tablet,disintegrating 4 mg PO Q8H PRN (Reason: nausea and vomiting) Qty: 20 0RF Flomax 0.4 mg capsule 0.4 mg PO DAILY Qty: 7 0RF No Action atorvastatin 10 mg tablet 10 mg PO DAILY metoprolol tartrate 50 mg tablet 50 mg PO DAILY allopurinol 300 mg tablet 300 mg PO DAILY citalopram 20 mg tablet 20 mg PO DAILY celecoxib [Celebrex] 200 mg capsule 200 mg PO DAILY amlodipine 10 mg tablet 10 mg PO DAILY vitamin B complex [B Complex-Vitamin B12] Tablet 1 tab PO DAILY cholecalciferol (vitamin D3) 1,250 mcg (50,000 unit) capsule 1,250 mcg PO DAILY glucosamine sulfate [Glucosamine] 500 mg tablet 500 mg PO BID Vitamin C 500 mg Tablet 500 mg PO DAILY Discharge Orders: Discharge ED (Routine); Ordered 07/23/23 Ordered By: Herrera Higuera Referrals: Amador Valladares DO [Primary Care Provider] - 1-3 days (For further evaluation and referral to urology through the [facility]) Discharge Diet: Advance as tolerated Discharge Activity: Increase activity as tolerated Patient Instructions: Kidney Stones, Kidney Stones (ED), Renal Colic (ED), Opioid Safety, Pain Management Activity Restrictions/Additional Instructions: Please further follow-up with your primary care doctor in 2 to 3 days for further reevaluation and referral [facility] drink lots of fluids over the next several days to reduce likelihood of secondary infection i.e. urinary tract infections please take medications as prescribed, and please return in the interim if any of your symptoms persist or worse Coding Level of Care Code ED Industry Consultant for Wilda Starr
[2023-07-23 11:38] LABS: Basophils # 0.1 10^3/uL (0.0-0.1); Basophils % 0.7 %; Eosinophils # 0.5 10^3/uL (0.0-0.8); Eosinophils % 5.4 %; Hematocrit 46.6 % (37-53); Lymphocytes # 1.4 10^3/uL (0.8-4.8); Lymphocytes % 15.5 %; Mean Corpuscular HGB Conc 33.5 g/dL (30-55); Mean Corpuscular Hemoglobin 30.5 pg (27-33); Mean Corpuscular Volume 91.2 fl (82-101); Mean Platelet Volume 9.9 fL (7.4-10.4); Monocytes # 0.7 10^3/uL (0.2-0.9); Monocytes % 8.2 %; Neutrophils # 6.14 10^3/uL (1.8-7.7); Neutrophils % 69.6 %; Nucleated Red Blood Cells % 0 %; Platelet Count 220 10^3/cmm (157-399); Red Blood Count 5.11 10^6/uL (3.85-5.65); Red Cell Distribution Width 12.9 % (12.1-15.1); White Blood Count 8.82 10^3/uL (3.29-11.43)
[2023-07-23] MEDS: sodium chloride 0.9% 1,000 ML 999 ML IV (11:57)
[2023-07-23] MEDS: ondansetron 2 mg/ML SDV 2 mL 4 MG IVP (11:57)
[2023-07-23] MEDS: ketorolac 30 mg/mL INJ 10 MG IVP (11:58)
[2023-07-23] MEDS: tamsulosin 0.4 mg Capsule PO (12:00)
[2023-07-23 12:02] VITALS: BP 154/80; PULSE 64; O2SAT 96
[2023-07-23 12:04] LABS: Alanine Aminotransferase 14 U/L (0-41); Albumin Level 4.2 g/dL (3.5-5.2); Alkaline Phosphatase 80 U/L (40-130); Anion Gap 13.6 (5-19); Aspartate Amino Transferase 11 U/L (0-40); Blood Urea Nitrogen 22 mg/dL (8-23); Calcium 9.1 mg/dL (8.5-10.5); Carbon Dioxide 26 mmol/L (22-29); Chloride 103 mmol/L (98-107); Globulin 2.7 g/dL (1.3-4.6); Glucose 122 mg/dL (65-115); Osmolality Calculated 293 mOsm/kg (285-295); Potassium 3.6 mmol/L (3.5-5.1); Sodium 139 mmol/L (136-145); Total Bilirubin 0.5 mg/dL (0.15-1.2); Total Protein 6.9 g/dL (6.6-8.7)
[2023-07-23 13:57] VITALS: BP 153/80; O2SAT 96
[2023-07-23 14:46] LABS: Add Urine Microscopic? YES; Bilirubin Urine 1+ (Negative); Blood Urine 2+ (Negative); Glucose Urine UA Norm (Normal); Ketones Urine 1+ (Negative); Leukocyte Esterase Urine Trace (Negative); Nitrate Urine Negative (Negative); Protein Urine 1+ (Negative); Urine Appearance SL Hazy (CLEAR); Urine Color Dark Yellow (Yellow); Urobilinogen Urine 4 mg/dL (Negative); pH Urine 5 (5-7)
[2023-07-23 14:47] LABS: Add Urine Culture? No; Amorphous Sediment Urine 3+ /hpf; Calcium Oxalate Crystals Urine 0-4 /hpf; Mucus Urine 4+ /hpf; RBC Urine 0-4 /hpf (0-2); Squamous Epithelial Cell Urine 0-4 /hpf (0-5); WBC Urine 0-4 /hpf (0-5)
== END 2023-07-23 15:30 | disposition home or self-care (01) ==
PROVIDERS: Emergency Provider Emergency Medicine; PCP Emergency Medicine Emergency Medical Services
DX: N20.0 Calculus of kidney (principal); E78.5 Hyperlipidemia, unspecified; I10 Essential (primary) hypertension; Z85.46 Personal history of malignant neoplasm of prostate; Z92.3 Personal history of irradiation
CPT/HCPCS: 74176; 80053; 81001; 85025; 96361; 96374; 96375; 99285; J1885; J2405; J7030

== ENCOUNTER 2024-04-28 09:30 | Outpatient (CLI) | payer OTHER, MEDICARE, SELFPAY | END 2024-04-28 09:31 | disposition home or self-care (01) | PROVIDERS: PCP Emergency Medicine Emergency Medical Services; Visit Provider Urology | DX: Z12.5 Encounter for screening for malignant neoplasm of prostate (principal); Z85.46 Personal history of malignant neoplasm of prostate | CPT/HCPCS: 84153 ==

== ENCOUNTER 2025-10-19 16:36 | Emergency (ER) | payer OTHER, SELFPAY ==
[2025-10-19 16:49] VITALS: BP 177/74; PULSE 60; RESP 16; TEMP 36.7; O2SAT 96
[2025-10-19] MEDS: tetanus-dipt-pertussis 0.5 mL SDV IM (17:43)
--- NOTE | 2025-10-19 17:49 | XRR_ITS ---
PROCEDURE INFORMATION: Exam: XR Right Finger(s) Exam date and time: 10/19/2025 6:06 PM Age: 80 years old Clinical indication: Injury or trauma; Other: Caught in wood planar; Laceration; Right; Ring finger TECHNIQUE: Imaging protocol: Radiologic exam of the right fingers. Views: Minimum 2 views. COMPARISON: No relevant prior studies available. FINDINGS: Bones/joints: Comminuted open fracture involving distal aspect distal phalanx right ring finger. Bone mineralization appears normal. Some osteoarthrosis of visualized right hand with some [id number] narrowing of right index finger and right long finger metacarpophalangeal joints. No severe joint space narrowing or erosion. Osteoarthrosis radial aspect right wrist. No dislocation or gross destructive bony process demonstrated. Soft tissues: Findings consistent with adjacent soft tissue trauma distal aspect right ring finger corresponding with patient history. Adjacent dressing. No obvious radiopaque foreign body noted. XR/XR finger RT min 2V [id number] IMPRESSION: 1. Findings consistent with comminuted open fracture distal phalanx right ring finger. 2. No dislocation or gross destructive bony process demonstrated.
[2025-10-19 18:10] VITALS: PULSE 59; O2SAT 93
--- NOTE | 2025-10-19 18:18 | W.ED.WOUNDLC ---
HPI - Wound/Laceration General: Chief Complaint: Wound/Laceration Stated Complaint: Rt ring lac Time Seen by Provider: 10/19/25 16:40 History of Present Illness: 80-year-old gentleman with history of hypertension. He presents to the ED due to a laceration. Patient was plaining a board when he got his finger caught at the end of the board. He has pain and laceration in his right ring finger. Patient then corrects himself and states he was plaining the board twice. This occurred just prior to arrival. No LOC. Tetanus is not up-to-date. Associated symptoms: Reports nausea; Denies chills or fever(s) Related Data Home Medications ?Medication ?Instructions ?Recorded ?Confirmed allopurinol 300 mg tablet 300 mg PO DAILY 03/16/20 07/23/23 amlodipine 10 mg tablet 10 mg PO DAILY 03/16/20 07/23/23 atorvastatin 10 mg tablet 10 mg PO DAILY 03/16/20 07/23/23 celecoxib 200 mg capsule (Celebrex) 200 mg PO DAILY 03/16/20 07/23/23 cholecalciferol (vitamin D3) 1,250 1,250 mcg PO DAILY 03/16/20 07/23/23 mcg (50,000 unit) capsule citalopram 20 mg tablet 20 mg PO DAILY 03/16/20 07/23/23 glucosamine sulfate 500 mg tablet 500 mg PO BID 03/16/20 07/23/23 (Glucosamine) metoprolol tartrate 50 mg tablet 50 mg PO DAILY 03/16/20 07/23/23 vitamin B complex (B 1 tab PO DAILY 03/16/20 07/23/23 Complex-Vitamin B12 tablet) ascorbic acid (vitamin C) 500 mg 500 mg PO DAILY 07/23/23 07/23/23 tablet (Vitamin C) Previous Rx's ?Medication ?Instructions ?Recorded hydrocodone 5 mg-acetaminophen 325 1 tab PO Q8H PRN pain #20 tabs 07/23/23 mg tablet ondansetron 4 mg disintegrating 4 mg PO Q8H PRN nausea and 07/23/23 tablet vomiting #20 tabs tamsulosin 0.4 mg capsule (Flomax) 0.4 mg PO DAILY #7 caps 07/23/23 cephalexin 500 mg capsule 500 mg PO TID 10 days #30 caps 10/19/25 methocarbamol 500 mg tablet 500 mg PO Q8H PRN muscle spasm #30 10/19/25 tabs Allergies Allergy/AdvReac Type Severity Reaction Status Date / Time No Known Allergies Allergy Verified 07/23/23 10:44 Review of Systems General: Reports: 10 or more systems reviewed and unremarkable except in HPI and below Const: Denies: fever(s), chills, fatigue or malaise Eyes: Denies: change in vision or blurry vision Card: Denies: chest pain or palpitations Resp: Denies: dyspnea or productive cough GI: Reports: abdominal pain and nausea : Reports: flank pain and urinary frequency Musc: Denies: extremity pain or extremity swelling Skin/Breast: Denies: rash or pruritus Neuro: Denies: headache(s), numbness in extremities, weakness in extremities or sensory changes Psych: Denies: anxiety or depression Henrry/Lymph: Denies: easy bleeding All/Imm: Denies: urticaria, throat swelling or facial swelling PFSH ED PFSH: Medical History (Updated 10/20/25 @ 01:26 by MARYANN Menjivar) Osteoarthritis Hyperlipidemia Hypertension Hypogonadism Carotid artery stenosis History of radiation therapy Prostate cancer Surgical History H/O angioplasty S/P tonsillectomy H/O prostate biopsy Family History Family/Other CAD (coronary artery disease) Hypertension Hyperlipidemia Social History Smoking and tobacco/nicotine status: never used tobacco/nicotine Alcohol intake: current Alcohol intake frequency: holidays/special occasions only Substance/Drug Use: never Marital status: Current occupational status: retired Physical Exam Const: COMMON NORMALS: no acute distress, average body habitus, patient oriented x3, no limitations, healthy appearing, alert and well nourished HENMT: COMMON NORMALS: normocephalic and atraumatic HEAD & SCALP: normocephalic and atraumatic Lymph: LYMPHATIC: no lymphadenopathy noted Chest: COMMONS NORMALS: normal inspection of the chest and normal palpation of entire chest wall Resp: COMMON NORMALS: normal respiratory effort, No retractions and No use of accessory muscles Cardio: COMMON NORMALS: regular rate and regular rhythm RATE: regular rate RHYTHM: regular rhythm GI: COMMON NORMALS: Normal to inspection, nondistended, normoactive bowel sounds present, Soft to palpation, non-tender and No hepatosplenomegaly present PALPATION: Yes Soft to palpation and Yes No hepatosplenomegaly present : COMMON NORMALS: Yes no CVA tenderness BLADDER/KIDNEY EXAM: Yes no CVA tenderness Back/Pelvis: COMMON NORMALS: no CVA tenderness Extremity: NARRATIVE EXTREMITY EXAM: Patient has circumferential lacerations x 2 distally and just proximal to that. Nailbed was included. Neuro: COMMON NORMALS: patient oriented x3 SENSORIUM/ORIENTATION: Yes alert Psych: COMMON NORMALS: mental status grossly normal, Normal thought process present and cooperative THOUGHT PROCESS: Normal thought process present Procedures Laceration Laceration 1: Site: hand (right 4th/index finger tip) Side (If applicable): right Size (cm): 4 Description: flap, irregular, clean and involves lid margin Depth: simple, single layer and involves muscle layer Local Anesthetic: lidocaine 1% Amount of anesthesia used (mL): 6 Pre-repair: wound explored, irrigated extensively (1000 ml), extensive debridement and wound margins revised Skin layer closed with: nylon Size (cm): 3-0 Number of sutures: 6 Technique: simple, interrupted Course Vital Signs: Vital signs: Vital Signs Temperature 98.1 F 10/19/25 16:49 Pulse Rate 59 L 10/19/25 18:10 Respiratory Rate 16 10/19/25 16:49 Blood Pressure 177/74 10/19/25 16:49 Pulse Oximetry 93 10/19/25 18:10 Oxygen Delivery Me thod Room Air 10/19/25 18:10 MDM - Wound/Laceration Medical Decision Making This was difficult on suturing given the 2 laceration lines, and nearly a degloving, and open fracture to distal phalanx. This was treated as an open fracture and patient was given Ancef. The wound was vigorously washed with 1000 mL of saline. The wound was vigorously cleaned with peroxide, and with Betadine prep. Suturing was through both layers of laceration x 6 circumferentially. Discussed with patient he is high risk for necrosis to the end of the finger. He will need to be on antibiotics the entire time, and this will need to be followed by orthopedics. Patient states understanding, and was brace, and placed in wet-to-dry bandages. Wound care was given to him verbally and written down. Medical Records I reviewed the patient's medical records. Lab Data Radiology Impressions Finger X-Ray 10/19/25 17:49 IMPRESSION: 1. Findings consistent with comminuted open fracture distal phalanx right ring finger. 2. No dislocation or gross destructive bony process demonstrated. All radiology interpretation(s) finalized by discharge ED provider radiology interpretation(s): Distal phalanx fracture Discharge Plan Discharge Patient Disposition: Home Clinical Impression: Fracture of distal phalanx of finger of right hand, Laceration of right index finger Condition: Stable Prescriptions: New cephalexin 500 mg capsule 500 mg PO TID 10 Days Qty: 30 0RF methocarbamol 500 mg tablet 500 mg PO Q8H PRN (Reason: muscle spasm) Qty: 30 0RF No Action atorvastatin 10 mg tablet 10 mg PO DAILY metoprolol tartrate 50 mg tablet 50 mg PO DAILY allopurinol 300 mg tablet 300 mg PO DAILY citalopram 20 mg tablet 20 mg PO DAILY celecoxib [Celebrex] 200 mg capsule 200 mg PO DAILY amlodipine 10 mg tablet 10 mg PO DAILY vitamin B complex [B Complex-Vitamin B12] Tablet 1 tab PO DAILY cholecalciferol (vitamin D3) 1,250 mcg (50,000 unit) capsule 1,250 mcg PO DAILY glucosamine sulfate [Glucosamine] 500 mg tablet 500 mg PO BID Vitamin C 500 mg Tablet 500 mg PO DAILY hydrocodone-acetaminophen 5-325 mg tablet 1 tab PO Q8H PRN (Reason: pain) Qty: 20 0RF ondansetron 4 mg tablet,disintegrating 4 mg PO Q8H PRN (Reason: nausea and vomiting) Qty: 20 0RF Flomax 0.4 mg capsule 0.4 mg PO DAILY Qty: 7 0RF Discharge Orders: Discharge ED (Routine); Ordered 10/19/25 Ordered By: Marisol Manley Referrals: Jarrett Poon MD [Physician, Orthopedics] - 7-10 days Amador Valladares DO [Primary Care Provider, Emergency Medicine] Discharge Diet: Usual diet Discharge Activity: Limit activity as instructed Patient Instructions: Fractures - Phalanx (Finger), Laceration (ED), Patient Portal & Trish Instructions Activity Restrictions/Additional Instructions: - Call Dr. Poon's office for follow-up. Referral has been made. - As we discussed, this will need to be followed closely. - As we discussed, take your antibiotics 3 times a day, set an alarm. It is crucial to take your antibiotics as directed. Take a probiotic or eat active culture yogurt. Your antibiotics are due to be started first thing in the morning. - Wound care: Wet to dry. Xeroform, Vaseline gauze, followed by wet gauze, followed by dry gauze, and splint. - Return to ED if you have redness, drainage, fever greater than 100.4 - As we discussed, you are at high risk for losing the tip of your finger. Follow-up with your doctor closely. Return to ED if you need to. Thank you for choosing [facility] for your healthcare needs today. You have been screened and evaluated and felt safe for discharge. Health conditions do change or evolve sometimes and as such it is important that you follow up with your Primary Doctor to be re checked, 3-5 days is a general good time frame for follow up. You are always welcome to return to the ED for re assessment if your symptoms are worsening or you have new concerns Print Language: Trinidadian Coding Level of Care Code ED Swabber for Wilda Starr
[2025-10-19] MEDS: ceFAZolin 1,000 mg SDV 1000 MG IVP (18:55)
[2025-10-19] MEDS: HYDROcodone-acetaminophen 5-325 mg Tablet 1 TAB PO (20:21)
[2025-10-19] MEDS: HYDROcodone-acetaminophen 10-325 mg Tablet 2 TAB PO (20:22)
--- OUTSIDE RECORDS SUMMARY | 2025-10-19 20:48 | XMS_ITS | Clinical Summary ---
Author Organization [facility] Address [address] 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
--- NOTE | 2025-10-20 07:26 | DCPLANNER ---
messaged ortho for er f/u
== END 2025-10-19 20:26 | disposition home or self-care (01) ==
PROVIDERS: Emergency Provider Physician Assistant; PCP Emergency Medicine Emergency Medical Services
DX: S62.634A Displaced fracture of distal phalanx of right ring finger, initial encounter for closed fracture (principal); S61.214A Laceration without foreign body of right ring finger without damage to nail, initial encounter; E78.5 Hyperlipidemia, unspecified; I10 Essential (primary) hypertension; Z85.46 Personal history of malignant neoplasm of prostate; W23.0XXA Caught, crushed, jammed, or pinched between moving objects, initial encounter
CPT/HCPCS: 12042; 73140; 90471; 90715; 96374; 99284; J0690; J9999